=== PATIENT | male | born 1980 | race Caucasian/White ===

== ENCOUNTER 2020-05-10 08:16 | Emergency (ER) | payer SELFPAY ==
--- NOTE | 2020-05-10 08:22 | PC.NURSE ---
Pt left from registration, not seen by nursing staff.
--- NOTE | 2020-05-10 09:38 | ED.GENADULT ---
HPI - General Adult General Stated complaint: lt hand index finger laceration Related Data Allergies Allergy/AdvReac Type Severity Reaction Status Date / Time No Known Allergies Allergy Unknown Verified 02/25/16 15:11 [facility] [place] Family History Family History (Updated 09/28/17 @ 08:59 by DOCTOR UNKNOWN) Father Patient's father is in good health Sibling Patient's brother is in good health Mother Family history of sleep apnea Social History Social History Smoking status: Never smoker Medical Decision Making MDM Narrative Medical decision making narrative: PATIENT LWBS WHILE REGISTERING -- NO EXAMINATION WAS COMPLETED BY [employer]INTE[employer]CH[employer]IC
== END 2020-05-10 08:22 | disposition left against medical advice (07) ==
LOC: EXPGLEN 08:19
PROVIDERS: Emergency Provider Nurse Practitioner Family
DX: Z53.21 Procedure and treatment not carried out due to patient leaving prior to being seen by health care provider (principal)
CPT/HCPCS: 99199